=== PATIENT | male | born 1945 | race Native Hawaiian/Other Pacific Islander ===

== ENCOUNTER 2022-07-20 18:17 | Emergency (ER) | payer OTHER ==
[~2022-07-20] VITALS: Ht 177.8 cm; Wt 88.5 kg
[2022-07-20 19:12] LABS: POTASSIUM 3.1 mmol/L (3.6-5.2)
[2022-07-20 19:13] LABS: PLATELET COUNT 577 K/uL (142-355)
[2022-07-20 19:23] LABS: PARTIAL THROMBOPLASTIN TIME 24.3 SECONDS (24.5-33.6)
[2022-07-20 20:30] VITALS: BP 87/70; TEMP 97.6
== END 2022-07-20 20:35 | disposition short-term general hospital (02) ==
LOC: ED 18:17
PROVIDERS: Family Medicine
DX: I44.2 Atrioventricular block, complete (principal); E87.6 Hypokalemia
CPT/HCPCS: 80053; 82550; 84484; 85027; 85610; 85730; 96360; 96361; 96365; 96375; 99285; J2270